=== PATIENT | female | born 1975 | race Caucasian/White ===

== ENCOUNTER 2018-08-31 09:16 | Outpatient (CLI) | payer OTHER ==
--- NOTE | 2018-09-08 09:35 | MMO ---
BILATERAL SCREENING MAMMOGRAM: History: 43-year-old female, routine screening mammography. Comparison: 03-08-17 Technique: CC and MLO views of both breasts are submitted for interpretation. This study is interpret ed with the assistance of computer aided detection. FINDINGS: Breasts are composed of scattered fibroglandular tissue. Bilaterally, no suspicious dominate mass, ar chitectural distortion or suspicious calcifications. IMPRESSION: BIRADS category 2 - benign findings. RECOMMENDATION: Annual mammography. POS: [facility]
== END 2018-08-31 09:17 | disposition home or self-care (01) ==
LOC: SCSMAMMO 09:16
PROVIDERS: ATTEND Family Medicine
DX: Z12.31 Encounter for screening mammogram for malignant neoplasm of breast (principal)
CPT/HCPCS: 77067